=== PATIENT | female | born 2000 | race Hispanic/Latino ===

== ENCOUNTER 2021-09-25 12:43 | Emergency (ER) | payer OTHER ==
[2021-09-25] MEDS ORDERED: Lidocaine 1% (PF) 30 ML VIAL ONE (14:29)
[2021-09-25] MEDS ORDERED: Lidocaine 1% PF 5 ML VIAL ONE (14:31)
[2021-09-25] MEDS ORDERED: Ketorolac Tromethamine 30 MG/ML VIAL ONE (16:15)
== END 2021-09-25 16:29 | disposition home or self-care (01) ==
LOC: CSHERS 12:43
DX: L05.01 Pilonidal cyst with abscess (principal)
CPT/HCPCS: 10080; 96372; J1885; J2001

== ENCOUNTER 2021-10-22 11:46 | Emergency (ER) | payer OTHER ==
[2021-10-22 12:36] LABS: #Basophils 0.1 10x3/uL (0.0-0.2); #Eosinphils 0.4 10x3/uL (0.0-0.5); #Monocytes 0.7 10x3/uL (0.0-1.1); #Neutrophils 3.6 10x3/uL (1.5-8.4); %Basophils 0.9 % (0.0-2.0); %Eosinophils 5.4 % (0.0-6.0); %Lymphocytes 37.4 % (18.0-47.0); %Monocytes 9.2 % (0.0-10.0); %Neutrophils 46.8 % (40.0-75.0); Hemoglobin 12.4 g/dL (12.0-15.5); Mean Corpuscular HGB CONC 33.2 g/dL (32.0-36.0); Mean Corpuscular Hemoglobin 28.3 pg (27.0-33.0); Mean Corpuscular Volume 85.4 fl (81.6-98.3); Mean Platelet Volume 9.5 fl (7.4-10.4); Platelet Count 408 10x3/uL (150-450); RBC Distribution Width 13.8 % (11.5-14.5); Red Blood Cell (RBC) Count 4.38 10x6/uL (3.90-5.03); White Blood Cell (WBC) Count 7.7 10x3/uL (3.5-10.5)
[2021-10-22 12:44] LABS: ALT (SGPT) 12 U/L (8-55); AST (SGOT) 16 U/L (5-34); Albumin 4.2 g/dL (3.5-5.0); Alkaline Phosphatase 90 U/L (40-100); Anion Gap 11 mmol/L (10-20); BUN (Urea Nitrogen) 9 mg/dL (7.0-18.7); Bilirubin, Total 0.2 mg/dL (0.2-1.2); Calc. Creatinine Clearance 0 mL/min (70-130); Calcium 9.2 mg/dL (7.8-10.44); Carbon Dioxide 26 mmol/L (22-29); Chloride 105 mmol/L (98-107); Estimated GFR 119; Globulin 3.3 g/dL (2.4-3.5); Glucose 90 mg/dL (70-105); Potassium 4.1 mmol/L (3.5-5.1); Protein, Total 7.5 g/dL (6.0-8.3); Sodium 138 mmol/L (136-145)
[2021-10-22 12:51] LABS: BHCG - Serum Negative (NEGATIVE); Pregs Control Background? CLEAR/WHITE (CLR/WHITE); Pregs Control Bar Appear? YES (CONTROL BAR)
== END 2021-10-22 13:41 | disposition home or self-care (01) ==
LOC: CSHERS 11:46
DX: N92.0 Excessive and frequent menstruation with regular cycle (principal)
CPT/HCPCS: 36415; 80053; 84703; 85025; 99284